=== PATIENT | male | born 1970 | race Caucasian/White ===

== ENCOUNTER 2017-02-08 18:28 | Inpatient (IN) | payer MEDICARE, MEDICAID ==
--- NOTE | 2017-02-08 19:51 | ED Physician Chart ---
Chief Complaint/HPI - Patient Information Date Seen:: 02/08/17 Time Seen:: 19:15 Chief Complaint:: Sent from SNF for agitation, auditory hallucinations. Allergies:: Allergies Allergy/AdvReac Type Severity Reaction Status Date / Time No Known Allergies Allergy Verified 02/08/17 18:37 Vitals:: Vital Signs - 8 hr 02/08/17 18:28 Temp 98.6 F HR 76 RR 16 BP 113/57 O2 Sat % 97 Review of Systems - Review of Systems General/Constitutional: No fever, No chills Skin: No skin lesions Head: No headache ENT: No earache, No sore throat Neck: No neck pain Cardio Vascular: No chest pain Pulmonary: No SOB, No cough GI: No vomiting, No diarrhea G/U: No dysuria Neurological: No focal symptoms Past Medical History - Past Medical History Past Medical History: HTN, Other (hyperlipidemia, hepatic encephahlopathy, COPD , anemia, seizure disorder, liver disease) Family History: Other (no known congenital disease) Social History: Non Smoker, No Alcohol Surgical History: None, other Medication Reviewed:: abilify, lasix, acetaminophen, buspar, ativan vasotec, tricor, asa, topamax, lactulose Family Medical History - Family Member Mother History Unknown: Yes Physical Exam - Physical Examination General/Constitutional: Awake, Well-developed, well-nourished, Alert, No distress, Non-toxic appearing Head: Atraumatic Eyes: Lids, conjuctiva normal, PERRL, EOMI Skin: No skin lesions ENMT: External ears, nose nl, TM canals nl, Lips, teeth, gums nl Neck: Nontender, Full ROM w/o pain Respiratory: Nl effort/Exclusion, Clear to Auscultation, No Wheeze/Rhonchi/Rales Cardio Vascular: RRR, No murmur, gallop, rubs GI: No tenderness/rebounding/guarding : No CVA tenderness Extremities: No tenderness or effusion, Full ROM Neuro/Psych: Normal motor strength, No focal deficits Other Neuro/Psych comments:: no asterixis Labs/Radiology/EKG Results - Lab Results Results: EKG: NSR rate 72. Nl. axis. Poor R wave development. No acute ST changes. TSH normal Cardiac marker, amylase and lipase normal. EtOH neglibible. CMP show Na 135, K 3.3. BUN/creat = 33/1.1 WBC = 10.4, H/H = 10.4/29.5. Li pending. Dr. Nova aware. ED Septic Shock - . Is Septic Shock (SBP<90, OR Lactate>4 mmol\L) present?: No - <6hrs of presentation: Vital Signs: Vital Signs - 8 hr 02/08/17 18:28 Temp 98.6 F HR 76 RR 16 BP 113/57 O2 Sat % 97 Reassessment (Disposition) - Diagnosis Diagnosis:: Dx: Agitation, Hallucination - Patient Disposition Accepting Physician:: Dr. Nova Time Called:: [id number] Time Responded:: 22:05 Discussion with Medical Provider:: Discussed with Dr. Nova. He will admit to med. He understands Li level is pending. Condition at Disposition:: Stable ED Discharge Plan - Patient Disposition Instructions: Psychosis
[2017-02-08 19:59] LABS: % BASOPHILS 0.7 % (0.0-2.0); % EOSINOPHILS 6.7 % (0.0-5.0); % LYMPHOCYTES 23.7 % (20.0-50.0); % MONOCYTES 8.8 % (2.0-10.0); % NEUTROPHILS 60.1 % (40.0-80.0); HEMOGLOBIN 10.4 gm/dL (13.2-17.3); MEAN CELL VOLUME 89.7 fl (80-99); MEAN CORPUSCULAR HEMOGLOBIN 31.5 pg (26.0-30.0); MEAN CORPUSCULAR HGB CONC 35.1 pg (28.0-36.0); MEAN PLATELET VOLUME 7.1 fl; NEUTROPHILE ABSOLUTE 6.2 Th/cmm (1.8-8.0); RED BLOOD COUNT 3.29 Mil/cmm (4.30-5.70); RED CELL DISTRIBUTION WIDTH 11.6 % (11.5-20.0); WHITE BLOOD COUNT 10.4 Th/cmm (4.8-10.8)
[2017-02-08 20:06] LABS: ALB/GLOB RATIO 1.2 (1.0-1.8); ALKALINE PHOSPHATASE 78 U/L (34-104); AMYLASE SERUM 29 U/L (29-103); ANION GAP 8.3 (7.0-16.0); BILIRUBIN,TOTAL 0.3 mg/dL (0.3-1.0); BUN - UREA NITROGEN 33 mg/dL (7-25); CALCIUM SERUM 9.3 mg/dL (8.6-10.3); CHLORIDE 103 mEq/L (98-107); CREATININE - SERUM 1.1 mg/dL (0.7-1.3); GLUCOSE 112 mg/dL (70-105); LIPASE 20 U/L (11-82); POTASSIUM SERUM 3.3 mEq/L (3.5-5.1); SGOT 20 U/L (13-39); SGPT/ALT 25 U/L (7-52); SODIUM SERUM 135 mEq/L (136-145)
[2017-02-08 20:23] LABS: HEMATOCRIT 29.5 % (39.0-49.0)
[2017-02-08 20:24] LABS: PLATELET COUNT 491 Th/cmm (150-400)
[2017-02-08 20:27] LABS: CREATINE KINASE MB 1.1 ng/mL (0.6-6.3)
[2017-02-08] MEDS ORDERED: Maalox 30 mL Cup PO PRN (22:05)
[2017-02-08] MEDS ORDERED: Magnesium Hydroxide (MOM) 30 mL UDC PO PRN (22:05)
[2017-02-08] MEDS ORDERED: Albuterol Nebulizer 2.5mg/3mL IH PRN (22:07)
[2017-02-08 22:15] LABS: URINE BILIRUBIN SMALL (NEGATIVE); URINE BLOOD NEGATIVE (NEGATIVE); URINE COLOR YELLOW; URINE GLUCOSE (UA) NEGATIVE (NEGATIVE); URINE KETONE TRACE mg/dL (NEGATIVE); URINE PROTEIN NEGATIVE (NEGATIVE)
[2017-02-08 22:16] LABS: URINE BACTERIA NONE SEEN /hpf (NONE SEEN); URINE EPITHELIAL CELLS NONE SEEN /lpf (FEW); URINE RBC NONE SEEN /hpf (0-5); URINE WBC NONE SEEN /hpf (0-5)
[2017-02-08 22:18] LABS: AMPHETAMINE URINE NEGATIVE (NEGATIVE); BARBITURATES URINE NEGATIVE (NEGATIVE); METHADONE URINE NEGATIVE (NEGATIVE)
[2017-02-08] MEDS: D5-0.9NS w/KCL 20mEq 1,000 ML IV SCH (23:52)
[2017-02-08] MEDS ORDERED: D5-0.9NS w/KCL 20mEq 1,000 ML IV ONE (23:57)
--- NOTE | 2017-02-09 00:22 | Admit Criteria Form ---
Admit Criteria Forms - Admit Criteria Diagnosis: PSYCHIATRIC DISORDERS Clinical Indications for Inpatient Care (Place 'X' for any and all applicable criteria): Ongoing inpatient care may be needed for ANY ONE of the following(1)(2)(3)(4)(6) (7)(8): [ ]I. Danger to self or others not manageable at lower level of care. [ ]II. Grave disability (eg, inability to perform self care necessary at lower level of care) [ ]III. Agitation or inappropriate behavior interfering with care for primary condition (eg, attempting to discontinue lines or drains prematurely, unable to cooperate with respiratory care) [X]IV. Severe disability or disorder indicated by ALL of the following: [X]a) Severe behavioral health disorder-related symptoms or condition indicated by ANY ONE of the following: [ ]i) Severe problem with cognition, memory, judgment, or impulse control [X]ii) Severe clinical manifestations (eg, hallucinations, delusions, other acute psychotic symptoms, duane, extreme agitation or anxiety) [X]b) Patient management at lower level of care is not feasible until acute intervention or modification is initiated. Extended stay beyond goal length of stay for the primary condition may be indicated when ANY ONE of the following is present: (1)(2)(3)(4): [ ]a) Patient is a danger to self or others and not manageable at lower level of care. [ ]b) Behavior crisis management, including physical or chemical restraints, is required and is not available at a lower level of care. [ ]c) Behavioral symptoms (e.g., agitation, somnolence, inappropriate behavior) are present, and are not manageable at a lower level of care. [ ]d) Patient cannot understand follow-up treatment and crisis plan. [ ]e) Provider and supports are not sufficiently available at lower level of care. [ ]f) Patient cannot participate (e.g., verify absence of plan for harm) and is in needed of monitoring. The original [facility] content created by [facility] has been revised. The portions of the content which have been revised are identified through the use of italic text or in bold, and [facility] has neither reviewed nor approved the modified material. All other unmodified content is copyright [facility]. Please see references footnoted in the original [facility] edition 2016 Admit Criteria Met?: Yes
[2017-02-09] MEDS ORDERED: APAP/Codeine 300 mg/30 mg Tab ONE (03:40)
[2017-02-09] MEDS: APAP/Codeine 300 mg/30 mg Tab PO PRN ×3 (03:55→20:11)
[2017-02-09 06:55] LABS: ANION GAP 1.7 (7.0-16.0); BUN - UREA NITROGEN 35 mg/dL (7-25); BUN/CREATININE RATIO 31.8; CALCIUM SERUM 9.3 mg/dL (8.6-10.3); CARBON DIOXIDE 27.1 mEq/L (21.0-31.0); CHLORIDE 108 mEq/L (98-107); CREATININE - SERUM 1.1 mg/dL (0.7-1.3); GLUCOSE 105 mg/dL (70-105); MAGNESIUM 2.2 mg/dL (1.9-2.7); POTASSIUM SERUM 3.8 mEq/L (3.5-5.1); SODIUM SERUM 133 mEq/L (136-145)
[2017-02-09] MEDS ORDERED: MELOXICAM 15 MG PO SCH (09:00)
[2017-02-09] MEDS ORDERED: Fenofibrate, Micronized 134 mg Cap PO SCH (09:00)
[2017-02-09] MEDS: Lactulose 10 Gm/15 mL 30mL UDC PO SCH ×5 (09:26→23:58)
[2017-02-09] MEDS: Diclofenac 75 mg Tab PO SCH ×2 (09:28→16:37)
[2017-02-09] MEDS: Aspirin 81mg Chewable Tab PO SCH (09:29)
--- NOTE | 2017-02-09 09:49 | Diagnostic Imaging Report ---
Portable chest x-ray History: Cough Allowing for portable technique the heart size is normal. No focal pulmonary parenchymal processes. No hilar or mediastinal abnormalities. Impression: No acute abnormalities.
[2017-02-09] MEDS: D5-0.9NS w/KCL 20mEq 1,000 ML IV SCH (11:59)
--- NOTE | 2017-02-09 17:20 | History & Physical ---
CHIEF COMPLAINT: Increasing agitation, dehydrated, and not taking medications. HISTORY OF PRESENT ILLNESS: This is a 47-year-old male with history of COPD, hypertension, liver disease, chronic pain syndrome, was admitted from nursing facility secondary to above complaints. The patient was evaluated in the ER and admitted for further management. PAST MEDICAL HISTORY: As mentioned in history present illness. PAST SURGICAL HISTORY: Denies previous surgeries in the past. ALLERGIES: No known drug allergies. MEDICATIONS: The patient is on aspirin, Tylenol, Mobic, Voltaren, lactulose, Abilify and BuSpar. FAMILY HISTORY: Noncontributory. SOCIAL HISTORY: The patient is a halfway patient, requiring 24-hour total care. REVIEW OF SYSTEMS: This is limited secondary to the patient's current mental status. We will try to obtain more detailed review of system at a later date by talking to family members, Nikita ____, number [phone]. We will also try to get information from nursing staff at [facility], at [phone] as well as from ____. PHYSICAL EXAMINATION: VITAL SIGNS: Blood pressure 130/60, respirations 19, pulse 92, temperature 98.4. GENERAL: A middle-aged male in no acute distress. NECK: Supple. No mass. LUNGS: Equal breath sounds, few rhonchi. HEART: Regular rhythm without appreciable murmurs. ABDOMEN: Soft, nontender, globular. Positive bowel sounds. EXTREMITIES: Positive excoriations. NEUROLOGIC: Limited, moving 4 extremities. LABORATORY DATA: As detail in the laboratory ____ findings. Sodium 135, potassium ____, BUN 32, creatinine 1.1, BUN did increase to 35. WBC 10.5, hemoglobin 10.4, platelets 491. Ammonia was 97. Glucose was 200. ASSESSMENT AND PLAN: Increasing agitation, hyponatremia, hypokalemia, chronic obstructive pulmonary disease, hypertension, possible cirrhosis, chronic pain syndrome, anemia, possible diabetes. We will continue the patient on IV hydration. We will correct electrolyte abnormalities. Continue the patient on oxygen and bronchodilator treatments. Psychiatry is following. We will adjust the patient's psychotropic medication. We will continue to follow the patient closely. JOB# [id number]
[2017-02-10] MEDS: APAP/Codeine 300 mg/30 mg Tab PO PRN ×3 (01:45→16:32)
[2017-02-10] MEDS: D5-0.9NS w/KCL 20mEq 1,000 ML IV SCH (01:47)
[2017-02-10 06:23] LABS: % BASOPHILS 0.2 % (0.0-2.0); % EOSINOPHILS 4.1 % (0.0-5.0); % LYMPHOCYTES 21.9 % (20.0-50.0); % MONOCYTES 7.5 % (2.0-10.0); % NEUTROPHILS 66.3 % (40.0-80.0); HEMATOCRIT 28.1 % (39.0-49.0); HEMOGLOBIN 9.7 gm/dL (13.2-17.3); MEAN CORPUSCULAR HGB CONC 34.5 pg (28.0-36.0); MEAN PLATELET VOLUME 7.3 fl; NEUTROPHILE ABSOLUTE 7.1 Th/cmm (1.8-8.0); PLATELET COUNT 462 Th/cmm (150-400); RED BLOOD COUNT 3.12 Mil/cmm (4.30-5.70); RED CELL DISTRIBUTION WIDTH 11.7 % (11.5-20.0); WHITE BLOOD COUNT 10.6 Th/cmm (4.8-10.8)
[2017-02-10 06:38] LABS: ALB/GLOB RATIO 1.1 (1.0-1.8); ALKALINE PHOSPHATASE 69 U/L (34-104); ANION GAP 7.8 (7.0-16.0); BILIRUBIN,TOTAL 0.4 mg/dL (0.3-1.0); BUN - UREA NITROGEN 27 mg/dL (7-25); CALCIUM SERUM 9.1 mg/dL (8.6-10.3); CARBON DIOXIDE 23.2 mEq/L (21.0-31.0); CHLORIDE 111 mEq/L (98-107); GLUCOSE 104 mg/dL (70-105); MAGNESIUM 2.1 mg/dL (1.9-2.7); SGOT 24 U/L (13-39); SGPT/ALT 27 U/L (7-52); SODIUM SERUM 138 mEq/L (136-145)
[2017-02-10] MEDS: Lactulose 10 Gm/15 mL 30mL UDC PO SCH ×7 (07:38→20:00)
[2017-02-10] MEDS: Fenofibrate, Micronized 134 mg Cap PO SCH (09:30)
[2017-02-10] MEDS: Aspirin 81mg Chewable Tab PO SCH (09:30)
[2017-02-10] MEDS: Diclofenac 75 mg Tab PO SCH ×2 (09:30→16:36)
--- NOTE | 2017-02-10 09:35 | Progress Notes ---
IDENTIFICATION: This is a 47-year-old male with history of schizophrenia, acute exacerbation, for acute psychosis. HISTORY OF PRESENT ILLNESS: The patient is admitted for mental status change, medical evaluation. He presents on inpatient unit with extreme psychosis, paranoia, delusional content, ____ calling around. ____ good. He has suicidal thoughts. He cannot contract for safety plan ____ harm self without further assistance. ____ medications that need to be fixed. "I just can't live anymore." PAST PSYCHIATRIC HISTORY: Prior treatment for depression and psychosis. PAST MEDICAL HISTORY: Deferred. CURRENT MEDICATIONS: Abilify and BuSpar. SOCIAL HISTORY: Lives in retirement. Denies drug or alcohol. MENTAL STATUS EXAMINATION: Alert and oriented x3. Speech is low. Thought process is tangential. Thought content is positive for hallucinations, paranoia, suicidal thoughts. Mood is dysphoric and anxious. Judgment is extremely poor. Refusing memory testing. DIFFERENTIAL DIAGNOSES: AXIS I: Schizoaffective, acute exacerbation. AXIS II: Deferred. AXIS III: Deferred. AXIS IV: ____. PLAN: At this time, the patient will be placed on 72-hour evaluation, 5150. Abilify will be titrated. We will monitor on daily basis for progress. If it does not show stabilization prior to medical clearance, we would recommend transfer to ____ Hospital. JOB# [id number]
[2017-02-10 12:20] LABS: HEP B CORE IGM Negative (Negative); HEP C ANTIBODY <0.1 s/co ratio (0.0-0.9)
--- NOTE | 2017-02-10 13:14 | Internal Medicine Prog Note ---
Internal Medicine Subjective - Subjective Patient seen and examined:: with staff, chart reviewed Patient is:: awake, verbal, interactive Per staff patient is:: no adverse event, no episodes of fall, agitated, noncompliant, confused Internal Medicine Objective - Results Result Diagrams: 02/10/17 05:54 02/10/17 05:54 Recent Labs: Laboratory Last Values WBC 10.6 Th/cmm (4.8-10.8) 02/10/17 05:54 RBC 3.12 Mil/cmm (4.30-5.70) L 02/10/17 05:54 Hgb 9.7 gm/dL (13.2-17.3) L 02/10/17 05:54 Hct 28.1 % (39.0-49.0) L 02/10/17 05:54 MCV 90.0 fl (80-99) 02/10/17 05:54 MCH 31.0 pg (26.0-30.0) H 02/10/17 05:54 MCHC Differential 34.5 pg (28.0-36.0) 02/10/17 05:54 RDW 11.7 % (11.5-20.0) 02/10/17 05:54 Plt Count 462 Th/cmm (150-400) H 02/10/17 05:54 MPV 7.3 fl 02/10/17 05:54 Neutrophils % 66.3 % (40.0-80.0) 02/10/17 05:54 Lymphocytes % 21.9 % (20.0-50.0) 02/10/17 05:54 Monocytes % 7.5 % (2.0-10.0) 02/10/17 05:54 Eosinophils % 4.1 % (0.0-5.0) 02/10/17 05:54 Basophils % 0.2 % (0.0-2.0) 02/10/17 05:54 Sodium 138 mEq/L (136-145) 02/10/17 05:54 Potassium 4.0 mEq/L (3.5-5.1) 02/10/17 05:54 Chloride 111 mEq/L (98-107) H 02/10/17 05:54 Carbon Dioxide 23.2 mEq/L (21.0-31.0) 02/10/17 05:54 Anion Gap 7.8 (7.0-16.0) 02/10/17 05:54 BUN 27 mg/dL (7-25) H 02/10/17 05:54 Creatinine 1.0 mg/dL (0.7-1.3) 02/10/17 05:54 Est GFR ( Amer) > 60.0 ml/min (>90) 02/10/17 05:54 Est GFR (Non-Af Amer) > 60.0 ml/min 02/10/17 05:54 BUN/Creatinine Ratio 27.0 02/10/17 05:54 Glucose 104 mg/dL (70-105) 02/10/17 05:54 POC Glucose 200 MG/DL (70 - 105) H 02/09/17 10:44 Hemoglobin A1c % 4.8 % (4.0-6.0) 02/08/17 19:20 Calcium 9.1 mg/dL (8.6-10.3) 02/10/17 05:54 Magnesium 2.1 mg/dL (1.9-2.7) 02/10/17 05:54 Total Bilirubin 0.4 mg/dL (0.3-1.0) 02/10/17 05:54 AST 24 U/L (13-39) 02/10/17 05:54 ALT 27 U/L (7-52) 02/10/17 05:54 Alkaline Phosphatase 69 U/L (34-104) 02/10/17 05:54 Ammonia 73 umol/L (16-53) H 02/10/17 05:54 Creatine Kinase 75 U/L (30-223) 02/08/17 19:26 CK-MB (CK-2) 1.1 ng/mL (0.6-6.3) 02/08/17 19:26 Troponin I 0.02 ng/mL (0.01-0.05) 02/08/17 19:26 B-Natriuretic Peptide 7.7 pg/mL (5.0-100.0) 02/09/17 06:25 Total Protein 6.6 gm/dL (6.0-8.3) 02/10/17 05:54 Albumin 3.5 gm/dL (4.2-5.5) L 02/10/17 05:54 Globulin 3.1 gm/dL 02/10/17 05:54 Albumin/Globulin Ratio 1.1 (1.0-1.8) 02/10/17 05:54 Amylase 29 U/L (29-103) 02/08/17 19:26 Lipase 20 U/L (11-82) 02/08/17 19:26 TSH 1.01 uIU/ml (0.34-5.60) 02/08/17 19:26 Urine Source CLEAN C 02/08/17 20:20 Urine Color YELLOW 02/08/17 20:20 Urine Clarity CLEAR (CLEAR) 02/08/17 20:20 Urine pH 7.0 02/08/17 20:20 Ur Specific Perry 1.020 (1.005-1.030) 02/08/17 20:20 Urine Protein NEGATIVE mg/dL (NEGATIVE) 02/08/17 20:20 Urine Glucose (UA) NEGATIVE mg/dL (NEGATIVE) 02/08/17 20:20 Urine Ketones TRACE mg/dL (NEGATIVE) 02/08/17 20:20 Urine Blood NEGATIVE (NEGATIVE) 02/08/17 20:20 Urine Nitrate NEGATIVE (NEGATIVE) 02/08/17 20:20 Urine Bilirubin SMALL (NEGATIVE) H 02/08/17 20:20 Urine Urobilinogen 1.0 E.U./dL (0.2 - 1.0) 02/08/17 20:20 Ur Leukocyte Esterase NEGATIVE (NEGATIVE) 02/08/17 20:20 Urine RBC NONE SEEN /hpf (0-5) 02/08/17 20:20 Urine WBC NONE SEEN /hpf (0-5) 02/08/17 20:20 Ur Epithelial Cells NONE SEEN /lpf (FEW) 02/08/17 20:20 Urine Bacteria NONE SEEN /hpf (NONE SEEN) 02/08/17 20:20 Urine Opiates Screen NEGATIVE (NEGATIVE) 02/08/17 20:20 Urine Methadone Screen NEGATIVE (NEGATIVE) 02/08/17 20:20 Ur Barbiturates Screen NEGATIVE (NEGATIVE) 02/08/17 20:20 Ur Tricyclics Screen NEGATIVE (NEGATIVE) 02/08/17 20:20 Ur Phencyclidine Scrn NEGATIVE (NEGATIVE) 02/08/17 20:20 Amphetamines Screen NEGATIVE (NEGATIVE) 02/08/17 20:20 U Methamphetamines Scrn NEGATIVE (NEGATIVE) 02/08/17 20:20 U Benzodiazepines Scrn POSITIVE (NEGATIVE) H 02/08/17 20:20 U Cocaine Metab Screen NEGATIVE (NEGATIVE) 02/08/17 20:20 U Cannabinoids Screen NEGATIVE (NEGATIVE) 02/08/17 20:20 Ethyl Alcohol < 10 mg/dL (0-10) 02/08/17 19:26 RPR NONREACTIVE (NONREACTIVE) 02/08/17 19:26 Hepatitis A IgM Ab Negative (Negative) 02/09/17 15:47 Hep Bs Antigen Negative (Negative) 02/09/17 15:47 Hep B Core IgM Ab Negative (Negative) 02/09/17 15:47 Hepatitis C Antibody <0.1 s/co ratio (0.0-0.9) 02/09/17 15:47 - Physical Exam Vitals and I&O: Vital Signs Temp 98 F 02/10/17 12:00 Pulse 75 02/10/17 12:00 Resp 20 02/10/17 12:00 BP 118/67 02/10/17 12:00 Pulse Ox 98 02/10/17 12:00 Intake & Output 02/09/17 02/10/17 02/10/17 18:59 06:59 18:59 Intake Total 908.75 1340 300 Balance 908.75 1340 300 Intake: Intake, IV Amount 908.75 1000 D5-0.9NS w/KCL 20mEq 1, 908.75 1000 000 ml @ 75 mls/hr IV . [id number] [facility] Rx#:[id number] Oral 340 300 Other: # Voids 2 # Bowel Movements 0 Stool Characteristics Soft Soft Active Medications: Current Medications Acetaminophen (Tylenol) 650 mg PO Q6HR PRN PRN Reason: Fever > 100.5 Stop: 04/09/17 22:04 Acetaminophen/Codeine Phosphate (Tylenol W/Codeine #3) 1 tab PO Q4HR PRN PRN Reason: Pain Stop: 04/09/17 22:04 Last Admin: 02/10/17 09:30 Dose: 1 tab Al Hydrox/Mg Hydrox/Simethicone (Maalox) 30 ml PO Q4H PRN PRN Reason: GI DISTRESS Stop: 04/09/17 22:04 Albuterol Sulfate (Albuterol 2.5mg/3ml Neb Ud) 2.5 mg IH Q2HR PRN PRN Reason: Shortness of Breath or Wheeze Stop: 04/09/17 22:06 Aripiprazole (Abilify) 15 mg PO DAILY [facility] PRN Reason: Protocol Stop: 04/10/17 08:59 Last Admin: 02/10/17 09:30 Dose: 15 mg Aspirin (Aspirin Chewable) 81 mg PO DAILY [place] Stop: 04/10/17 08:59 Last Admin: 02/10/17 09:30 Dose: 81 mg Buspirone HCl (Buspar) 20 mg PO BID [place] PRN Reason: Protocol Stop: 04/10/17 08:59 Last Admin: 02/10/17 09:30 Dose: 20 mg Diclofenac Sodium (Voltaren) 75 mg PO BID [facility] Stop: 04/10/17 08:59 Last Admin: 02/10/17 09:30 Dose: 75 mg Diphenhydramine HCl (Benadryl) 50 mg PO TID PRN PRN Reason: Itching Stop: 04/10/17 23:45 Last Admin: 02/10/17 10:10 Dose: 50 mg Enalapril Maleate (Vasotec) 5 mg PO DAILY [facility] Stop: 04/10/17 08:59 Last Admin: 02/10/17 09:30 Dose: 5 mg Fenofibrate (Tricor) 134 mg PO DAILY [facility] Stop: 04/10/17 08:59 Last Admin: 02/10/17 09:30 Dose: 134 mg Folic Acid (Folate) 1 mg PO DAILY [facility] Stop: 04/10/17 08:59 Last Admin: 02/10/17 09:30 Dose: 1 mg Potassium Chloride/Dextrose/Sod Cl (D5-0.9ns W/Kcl 20meq) 1,000 mls @ 75 mls/ hr IV .[id number] [facility] Stop: 04/09/17 22:14 Last Admin: 02/10/17 01:47 Dose: 75 mls/hr Lactulose (Cephulac) 40 gm PO Q4HR [facility] Stop: 04/10/17 00:00 Last Admin: 02/10/17 12:05 Dose: 40 gm Lorazepam (Ativan) 1 mg PO Q6H PRN; Protocol PRN Reason: Anxiety Stop: 04/09/17 22:04 Last Admin: 02/10/17 12:30 Dose: 1 mg Magnesium Hydroxide (Milk Of Magnesia) 30 ml PO HS PRN PRN Reason: Constipation Stop: 04/09/17 22:04 Topiramate (Topamax) 100 mg PO BID [facility] Stop: 04/10/17 08:59 Last Admin: 02/10/17 09:30 Dose: 100 mg General: demented HEENT: NC/AT, PERRLA Neck: Supple, No JVD Lungs: CTAB Cardiovascular: RRR, Normal S1, Normal S2 Abdomen: soft non-tender, globular, positive bowel sound Extremities: excoriation Neurological: no change - Procedures Procedures: Procedures Procedure Code Date INJECT/INFUSE NEC 99.29 05/15/13 Internal Medicine Assmt/Plan - Assessment Assessment: inc agitation copd obesity electrolytes abn cirrhosis - Plan Plan: correct lytes adjust psych med on 1;[address] jerry Nutritional Asmnt/Malnutr-PDOC - Dietary Evaluation Malnutrition Findings (Please click <Entered> for more info): Nutritional Asmnt/Malnutrition Start: 02/09/17 15: 31 Text: Status: Complete Freq: Document 02/09/17 15:34 GSUN (Rec: 02/09/17 15:45 GSUN [id number]) Nutritional Asmnt/Malnutrition Patient General Information Nutritional Screening Consult Diagnosis ER: agitation, hallucination Pertinent Medical Hx/Surgical Hx ER: HTN, hyperlipidemia, hepatic encephalopathy, COPD, anemia, seizure disorder, liver disease Subjective Information 47 year old male from SNF, per ER notes, admitted due to agitation and auditory hallucinations. RD consult for BS: 200. RD reviewed notes and labs, no DM noted. Pt was sitting upright in bed with more than 75% of lunch finished. Pt was pleasant, however short attention span noted. No nutritional concerns at this time. Current Diet Order/ Nutrition Support Regular Pertinent Medications Maalox, Folate, MOM, D5 Pertinent Labs /5: A1c 4.8, glucose 112H, BUN 33H Nutritional Hx/Data Height 1.75 m Height (Calculated Centimeters) 175.3 Current Weight (lbs) 101.015 kg Weight (Calculated Kilograms) 101.0 Weight (Calculated Grams) 865660.0 Usual body Weight (lbs) 220 [place] Body Weight 160 Recent Weight Change No Weight Status Approriate GI Symptoms Skin Integrity/Comment: Skin intact. Current %PO Good (75-100%) Estimated Nutritional Goals BEE in Kcals: Adj wt of IBW Calories/Kcals/Kg AdjBW 175.6lb/79.9kg Kcals Calculated 1997-7kcal (25-30kcal/kg) Protein: Adj wt of IBW Protein Calculated 64g (0.8g/kg) Fluid: ml 1997-2397ml (1ml/kcal) Nutritional Problem 1. Problem Problem No nutritional problems. Intervention/Recommendation Comments 1. Continue with regular diet. Current PO intake is adequate . Expected Outcomes/Goals Expected Outcomes/Goals 1. PO intake to meet at least 75% of estimated nutritional needs.
[2017-02-10] MEDS ORDERED: Nystatin Cream 100,000 u/gm Cream 15 gm TP PRN (17:22)
[2017-02-11] MEDS: APAP/Codeine 300 mg/30 mg Tab PO PRN ×2 (02:35→09:24)
--- NOTE | 2017-02-11 05:29 | Progress Notes ---
The patient is seen in medical floor. The patient continues to have severe psychosis, responding to internal stimuli, paranoid, delusional, feels as if ____ conspiring against him, ____ calling ____, police are shooting him, he has suicidal thoughts, cannot contract for safety, remains on 1:1 staff. Plan is to titrate Abilify for symptom relief, to continue close observation, continue 1:1 staff for ____ 7-day hold, work with him and transfer to psychiatric unit when medically cleared. JOB# [id number]
[2017-02-11] MEDS: Lactulose 10 Gm/15 mL 30mL UDC PO SCH ×5 (06:08→17:03)
[2017-02-11] MEDS: Fenofibrate, Micronized 134 mg Cap PO SCH (09:23)
[2017-02-11] MEDS: Aspirin 81mg Chewable Tab PO SCH (09:24)
[2017-02-11] MEDS: Diclofenac 75 mg Tab PO SCH ×2 (09:24→17:03)
--- NOTE | 2017-02-11 13:33 | Internal Medicine Prog Note ---
Internal Medicine Subjective - Subjective Patient seen and examined:: with staff, chart reviewed Patient is:: verbal, interactive Per staff patient is:: no adverse event, no episodes of fall, noncompliant Internal Medicine Objective - Results Result Diagrams: 02/10/17 05:54 02/10/17 05:54 Recent Labs: Laboratory Last Values WBC 10.6 Th/cmm (4.8-10.8) 02/10/17 05:54 RBC 3.12 Mil/cmm (4.30-5.70) L 02/10/17 05:54 Hgb 9.7 gm/dL (13.2-17.3) L 02/10/17 05:54 Hct 28.1 % (39.0-49.0) L 02/10/17 05:54 MCV 90.0 fl (80-99) 02/10/17 05:54 MCH 31.0 pg (26.0-30.0) H 02/10/17 05:54 MCHC Differential 34.5 pg (28.0-36.0) 02/10/17 05:54 RDW 11.7 % (11.5-20.0) 02/10/17 05:54 Plt Count 462 Th/cmm (150-400) H 02/10/17 05:54 MPV 7.3 fl 02/10/17 05:54 Neutrophils % 66.3 % (40.0-80.0) 02/10/17 05:54 Lymphocytes % 21.9 % (20.0-50.0) 02/10/17 05:54 Monocytes % 7.5 % (2.0-10.0) 02/10/17 05:54 Eosinophils % 4.1 % (0.0-5.0) 02/10/17 05:54 Basophils % 0.2 % (0.0-2.0) 02/10/17 05:54 Sodium 138 mEq/L (136-145) 02/10/17 05:54 Potassium 4.0 mEq/L (3.5-5.1) 02/10/17 05:54 Chloride 111 mEq/L (98-107) H 02/10/17 05:54 Carbon Dioxide 23.2 mEq/L (21.0-31.0) 02/10/17 05:54 Anion Gap 7.8 (7.0-16.0) 02/10/17 05:54 BUN 27 mg/dL (7-25) H 02/10/17 05:54 Creatinine 1.0 mg/dL (0.7-1.3) 02/10/17 05:54 Est GFR ( Amer) > 60.0 ml/min (>90) 02/10/17 05:54 Est GFR (Non-Af Amer) > 60.0 ml/min 02/10/17 05:54 BUN/Creatinine Ratio 27.0 02/10/17 05:54 Glucose 104 mg/dL (70-105) 02/10/17 05:54 POC Glucose 200 MG/DL (70 - 105) H 02/09/17 10:44 Hemoglobin A1c % 4.8 % (4.0-6.0) 02/08/17 19:20 Calcium 9.1 mg/dL (8.6-10.3) 02/10/17 05:54 Magnesium 2.1 mg/dL (1.9-2.7) 02/10/17 05:54 Total Bilirubin 0.4 mg/dL (0.3-1.0) 02/10/17 05:54 AST 24 U/L (13-39) 02/10/17 05:54 ALT 27 U/L (7-52) 02/10/17 05:54 Alkaline Phosphatase 69 U/L (34-104) 02/10/17 05:54 Ammonia 73 umol/L (16-53) H 02/10/17 05:54 Creatine Kinase 75 U/L (30-223) 02/08/17 19:26 CK-MB (CK-2) 1.1 ng/mL (0.6-6.3) 02/08/17 19:26 Troponin I 0.02 ng/mL (0.01-0.05) 02/08/17 19:26 B-Natriuretic Peptide 7.7 pg/mL (5.0-100.0) 02/09/17 06:25 Total Protein 6.6 gm/dL (6.0-8.3) 02/10/17 05:54 Albumin 3.5 gm/dL (4.2-5.5) L 02/10/17 05:54 Globulin 3.1 gm/dL 02/10/17 05:54 Albumin/Globulin Ratio 1.1 (1.0-1.8) 02/10/17 05:54 Amylase 29 U/L (29-103) 02/08/17 19:26 Lipase 20 U/L (11-82) 02/08/17 19:26 TSH 1.01 uIU/ml (0.34-5.60) 02/08/17 19:26 Urine Source CLEAN C 02/08/17 20:20 Urine Color YELLOW 02/08/17 20:20 Urine Clarity CLEAR (CLEAR) 02/08/17 20:20 Urine pH 7.0 02/08/17 20:20 Ur Specific [place] 1.020 (1.005-1.030) 02/08/17 20:20 Urine Protein NEGATIVE mg/dL (NEGATIVE) 02/08/17 20:20 Urine Glucose (UA) NEGATIVE mg/dL (NEGATIVE) 02/08/17 20:20 Urine Ketones TRACE mg/dL (NEGATIVE) 02/08/17 20:20 Urine Blood NEGATIVE (NEGATIVE) 02/08/17 20:20 Urine Nitrate NEGATIVE (NEGATIVE) 02/08/17 20:20 Urine Bilirubin SMALL (NEGATIVE) H 02/08/17 20:20 Urine Urobilinogen 1.0 E.U./dL (0.2 - 1.0) 02/08/17 20:20 Ur Leukocyte Esterase NEGATIVE (NEGATIVE) 02/08/17 20:20 Urine RBC NONE SEEN /hpf (0-5) 02/08/17 20:20 Urine WBC NONE SEEN /hpf (0-5) 02/08/17 20:20 Ur Epithelial Cells NONE SEEN /lpf (FEW) 02/08/17 20:20 Urine Bacteria NONE SEEN /hpf (NONE SEEN) 02/08/17 20:20 Urine Opiates Screen NEGATIVE (NEGATIVE) 02/08/17 20:20 Urine Methadone Screen NEGATIVE (NEGATIVE) 02/08/17 20:20 Ur Barbiturates Screen NEGATIVE (NEGATIVE) 02/08/17 20:20 Ur Tricyclics Screen NEGATIVE (NEGATIVE) 02/08/17 20:20 Ur Phencyclidine Scrn NEGATIVE (NEGATIVE) 02/08/17 20:20 Amphetamines Screen NEGATIVE (NEGATIVE) 02/08/17 20:20 U Methamphetamines Scrn NEGATIVE (NEGATIVE) 02/08/17 20:20 U Benzodiazepines Scrn POSITIVE (NEGATIVE) H 02/08/17 20:20 U Cocaine Metab Screen NEGATIVE (NEGATIVE) 02/08/17 20:20 U Cannabinoids Screen NEGATIVE (NEGATIVE) 02/08/17 20:20 Ethyl Alcohol < 10 mg/dL (0-10) 02/08/17 19:26 RPR NONREACTIVE (NONREACTIVE) 02/08/17 19:26 Hepatitis A IgM Ab Negative (Negative) 02/09/17 15:47 Hep Bs Antigen Negative (Negative) 02/09/17 15:47 Hep B Core IgM Ab Negative (Negative) 02/09/17 15:47 Hepatitis C Antibody <0.1 s/co ratio (0.0-0.9) 02/09/17 15:47 - Physical Exam Vitals and I&O: Vital Signs Temp 97.6 F 02/11/17 04:00 Pulse 66 02/11/17 09:26 Resp 19 02/11/17 04:00 BP 103/60 02/11/17 09:26 Pulse Ox 96 02/11/17 04:00 Intake & Output 02/10/17 02/11/17 02/11/17 18:59 06:59 18:59 Intake Total 980 200 100 Output Total 1 Balance 980 199 100 Intake: Oral 980 200 100 Output: Stool 1 Other: # Voids 2 3 1 # Bowel Movements 2 Stool Characteristics Soft Active Medications: Current Medications Acetaminophen (Tylenol) 650 mg PO Q6HR PRN PRN Reason: Fever > 100.5 Stop: 04/09/17 22:04 Last Admin: 02/10/17 21:21 Dose: 650 mg Acetaminophen/Codeine Phosphate (Tylenol W/Codeine #3) 1 tab PO Q4HR PRN PRN Reason: Pain Stop: 04/09/17 22:04 Last Admin: 02/11/17 09:24 Dose: 1 tab Al Hydrox/Mg Hydrox/Simethicone (Maalox) 30 ml PO Q4H PRN PRN Reason: GI DISTRESS Stop: 04/09/17 22:04 Albuterol Sulfate (Albuterol 2.5mg/3ml Neb Ud) 2.5 mg IH Q2HR PRN PRN Reason: Shortness of Breath or Wheeze Stop: 04/09/17 22:06 Aripiprazole (Abilify) 15 mg PO DAILY [place] PRN Reason: Protocol Stop: 04/10/17 08:59 Last Admin: 02/11/17 10:28 Dose: 15 mg Aspirin (Aspirin Chewable) 81 mg PO DAILY [place] Stop: 04/10/17 08:59 Last Admin: 02/11/17 09:24 Dose: 81 mg Buspirone HCl (Buspar) 20 mg PO BID [place] PRN Reason: Protocol Stop: 04/10/17 08:59 Last Admin: 02/11/17 09:24 Dose: 20 mg Diclofenac Sodium (Voltaren) 75 mg PO BID [place] Stop: 04/10/17 08:59 Last Admin: 02/11/17 09:24 Dose: 75 mg Diphenhydramine HCl (Benadryl) 50 mg PO TID PRN PRN Reason: Itching Stop: 04/10/17 23:45 Last Admin: 02/10/17 21:22 Dose: 50 mg Enalapril Maleate (Vasotec) 5 mg PO DAILY [place] Stop: 04/10/17 08:59 Last Admin: 02/11/17 09:26 Dose: Not Given Fenofibrate (Tricor) 134 mg PO DAILY [place] Stop: 04/10/17 08:59 Last Admin: 02/11/17 09:23 Dose: 134 mg Folic Acid (Folate) 1 mg PO DAILY [place] Stop: 04/10/17 08:59 Last Admin: 02/11/17 09:24 Dose: 1 mg Lactulose (Cephulac) 40 gm PO Q4HR [place] Stop: 04/10/17 00:00 Last Admin: 02/11/17 09:00 Dose: 40 gm Lorazepam (Ativan) 1 mg PO Q6H PRN; Protocol PRN Reason: Anxiety Stop: 04/09/17 22:04 Last Admin: 02/10/17 19:35 Dose: 1 mg Magnesium Hydroxide (Milk Of Magnesia) 30 ml PO HS PRN PRN Reason: Constipation Stop: 04/09/17 22:04 Nystatin (Mycostatin Cream) 1 appl TP DAILY PRN PRN Reason: Itching Stop: 04/11/17 17:21 Topiramate (Topamax) 100 mg PO BID [facility] Stop: 04/10/17 08:59 Last Admin: 02/11/17 09:23 Dose: 100 mg General: demented HEENT: NC/AT, PERRLA Neck: Supple Lungs: CTAB Cardiovascular: RRR, Normal S1, Normal S2 Abdomen: soft non-tender, globular Extremities: excoriation Neurological: no change - Procedures Procedures: Procedures Procedure Code Date INJECT/INFUSE NEC 99.29 05/15/13 Internal Medicine Assmt/Plan - Assessment Assessment: inc agitation copd obesity electrolytes abn cirrhosis - Plan Plan: correct lytes adjust psych med on 1;[address] jerry Nutritional Asmnt/Malnutr-PDOC - Dietary Evaluation Malnutrition Findings (Please click <Entered> for more info): Nutritional Asmnt/Malnutrition Start: 02/09/17 15: 31 Text: Status: Complete Freq: Document 02/09/17 15:34 GSUN (Rec: 02/09/17 15:45 GSUN [id number]) Nutritional Asmnt/Malnutrition Patient General Information Nutritional Screening Consult Diagnosis ER: agitation, hallucination Pertinent Medical Hx/Surgical Hx ER: HTN, hyperlipidemia, hepatic encephalopathy, COPD, anemia, seizure disorder, liver disease Subjective Information 47 year old male from SNF, per ER notes, admitted due to agitation and auditory hallucinations. RD consult for BS: 200. RD reviewed notes and labs, no DM noted. Pt was sitting upright in bed with more than 75% of lunch finished. Pt was pleasant, however short attention span noted. No nutritional concerns at this time. Current Diet Order/ Nutrition Support Regular Pertinent Medications Maalox, Folate, MOM, D5 Pertinent Labs 02/08: A1c 4.8, glucose 112H, BUN 33H Nutritional Hx/Data Height 1.75 m Height (Calculated Centimeters) 175.3 Current Weight (lbs) 101.015 kg Weight (Calculated Kilograms) 101.0 Weight (Calculated Grams) 658683.0 Usual body Weight (lbs) 220 [place] Body Weight 160 Recent Weight Change No Weight Status Approriate GI Symptoms Skin Integrity/Comment: Skin intact. Current %PO Good (75-100%) Estimated Nutritional Goals BEE in Kcals: Adj wt of IBW Calories/Kcals/Kg AdjBW 175.6lb/79.9kg Kcals Calculated 1997-2396kcal (25-30kcal/kg) Protein: Adj wt of IBW Protein Calculated 64g (0.8g/kg) Fluid: ml 1997-2397ml (1ml/kcal) Nutritional Problem 1. Problem Problem No nutritional problems. Intervention/Recommendation Comments 1. Continue with regular diet. Current PO intake is adequate . Expected Outcomes/Goals Expected Outcomes/Goals 1. PO intake to meet at least 75% of estimated nutritional needs.
[2017-02-11 14:11] LABS: FOLIC ACID >20.0 ng/mL (>3.0)
--- NOTE | 2017-04-16 23:58 | Discharge Summary ---
DATE OF DISCHARGE: 02/11/2017 CHIEF COMPLAINT: Increasing agitation and dehydration, not taking medication. FINAL DIAGNOSES: Increasing agitation, hyponatremia, hypokalemia, electrolyte abnormalities, chronic obstructive pulmonary disease, hypertension, cirrhosis, chronic pain syndrome, anemia, hyperglycemia. HISTORY: This is a 47-year-old male with history of COPD, hypertension, liver disease, chronic pain syndrome, was admitted from nursing facility secondary to increased agitation, not taking medications. The patient was admitted for further management. PHYSICAL EXAMINATION: VITAL SIGNS: Blood pressure 112/64, respirations 18, pulse 80, temperature 98.6. GENERAL: Middle-aged male, appears chronically ill. NECK: Supple. No mass. LUNGS: Equal breath sounds, few rhonchi. HEART: Regular rate and rhythm without appreciable murmurs. ABDOMEN: Soft, nontender. EXTREMITIES: Positive excoriations. HOSPITAL COURSE: The patient was admitted to medical floor. The patient was placed on one-to-one. Electrolytes were adjusted, given IV hydration. The patient was referred to Dr. Wilson for adjustment of psychotropic medications. The patient's condition did improve and cleared for discharge with close followup. CONDITION ON DISCHARGE: Fair. DISCHARGE INSTRUCTIONS: The patient to continue current medical regimen. The patient will be followed up by his primary care physician upon discharge. [facility]# [id number]
== END 2017-02-11 19:00 | DRG 640 ==
LOC: ER 18:28 → MSI 22:10
PROVIDERS: ADMIT Internal Medicine; ATTEND Internal Medicine
DX: E87.1 Hypo-osmolality and hyponatremia (principal); G93.41 Metabolic encephalopathy; I10 Essential (primary) hypertension; D64.9 Anemia, unspecified; E11.9 Type 2 diabetes mellitus without complications; K74.60 Unspecified cirrhosis of liver; F20.0 Paranoid schizophrenia; J44.9 Chronic obstructive pulmonary disease, unspecified; E87.6 Hypokalemia; E78.5 Hyperlipidemia, unspecified; G40.909 Epilepsy, unspecified, not intractable, without status epilepticus; G89.4 Chronic pain syndrome; E66.9 Obesity, unspecified; Z68.35 Body mass index [BMI] 35.0-35.9, adult; Z91.14 Patient's other noncompliance with medication regimen
CPT/HCPCS: 36415-UA; 71010-TC; 80048-TC; 80053-TC; 80074-90; 80307; 80320-TC; 81001-TC; 82140-TC; 82150-TC; 82550-TC; 82553; 82607-90; 82746-90; 82948-90; 83036-90; 83690-TC; 83735-TC; 83880-TC; 84443-TC; 84484-TC; 85025-TC; 86592-TC; 93005; 94760; Z7610